=== PATIENT | male | born 1995 | race Caucasian/White ===

== ENCOUNTER 2017-11-10 05:39 | Emergency (ER) | payer OTHER ==
[~2017-11-10] VITALS: Ht 167.6 cm; Wt 63.5 kg
[2017-11-10] MEDS ORDERED: UNICOMPLEX M TA1 TA1 PO (05:48)
[2017-11-10] MEDS ORDERED: ZOFRAN ODT4 MG PO (06:22)
[2017-11-10] MEDS ORDERED: IBUPROFEN 600600 M1 PO (06:22)
[2017-11-10] MEDS ORDERED: OSELB75 PO (06:23)
== END 2017-11-10 08:00 | disposition home or self-care (01) ==
LOC: ER 05:39
DX: J11.1 Influenza due to unidentified influenza virus with other respiratory manifestations (principal); J45.909 Unspecified asthma, uncomplicated